=== PATIENT | male | born 1990 | race Caucasian/White ===

== ENCOUNTER 2019-06-17 20:44 | Emergency (ER) | payer SELFPAY ==
[~2019-06-17] VITALS: Ht 167.6 cm; Wt 74.8 kg
--- NOTE | 2019-06-17 21:00 | NUR ---
Patient BIB patient's friend for c/o SI. Patient upon arrival smells of ETOH and admits to drinking a bottle of wine [employer]. Denies SI upon arrival. Placed in room 4B. Provided comfort and safety measures.
[2019-06-17 21:07] LABS: BASOPHILS # (AUTO) 0.1 K/uL (0.0-8.0); BASOPHILS % (AUTO) 0.9 % (0.0-2.0); EOSINOPHILS # (AUTO) 0.2 K/uL (0.0-0.7); HEMATOCRIT 41.9 % (36.7-47.1); HEMOGLOBIN 13.9 g/dL (12.5-16.3); LYMPHOCYTES % (AUTO) 43.9 % (20.5-51.5); MEAN CORPUSCULAR HEMOGLOBIN 30.3 uug (23.8-33.4); MEAN CORPUSCULAR HGB CONC 33 g/dL (32.5-36.3); MEAN CORPUSCULAR VOLUME 91.6 fL (73.0-96.2); MONOCYTES # (AUTO) 0.7 K/uL (2.0-10.0); MONOCYTES % (AUTO) 7.9 % (0.0-11.0); NEUTROPHILS # (AUTO) 4.1 K/uL (1.8-8.9); NEUTROPHILS % (AUTO) 45.3 % (38.5-71.5); PLATELET COUNT (AUTO) 320 K/uL (152-348); RED BLOOD CELL COUNT(AUTO) 4.57 MIL/uL (4.06-5.63); WHITE BLOOD COUNT (AUTO) 9.1 K/uL (3.6-10.2)
[2019-06-17 21:17] LABS: CARBON DIOXIDE 29 mmol/L (21-32); CHLORIDE 106 mmol/L (98-107); CREATININE 1.1 mg/dL (0.6-1.3); GLUCOSE 92 mg/dL (74-106); POTASSIUM 4.2 mmol/L (3.5-5.1); UREA NITROGEN, BLOOD 7 mg/dL (7-18)
[2019-06-17 21:22] LABS: ALANINE AMINOTRANSFERASE 24 U/L (16-63); ALKALINE PHOSPHATASE 51 U/L (50-136); ASPARTATE AMINOTRANSFERASE 17 U/L (15-37); BILIRUBIN,DIRECT 0.2 mg/dL (0.0-0.2); BILIRUBIN,TOTAL 0.5 mg/dL (0.2-1.0); TOTAL PROTEIN, SERUM 7.4 g/dL (6.4-8.2)
[2019-06-17 21:23] LABS: ACETAMINOPHEN < 2.0 ug/mL (10-30)
[2019-06-17 21:26] LABS: ETHANOL 330 MG/DL (0-0)
[2019-06-17 21:36] LABS: *BILIRUBIN,URIN NEGATIVE (NEGATIVE); *BLOOD, URINE NEGATIVE (NEGATIVE); *CLARITY,URINE CLEAR (CLEAR); *COLOR,URINE LIGHT YELLOW (YELLOW); *KETONES,URINE NEGATIVE (NEGATIVE); *UROBILINOGEN,URINE 0.2 E.U./dl (NORMAL); LEUKOCYTE ESTERASE ,URINE NEGATIVE (NEGATIVE); NITRITE, URINE NEGATIVE (NEGATIVE); PH,URINE 5.5 (5.0-8.0); UGLUCOSE NEGATIVE (NEGATIVE)
[2019-06-17 21:45] LABS: *AMPHETAMINE, URINE NEGATIVE (NEGATIVE); *BARBITURATE, URINE NEGATIVE (NEGATIVE); *CANNABINOID, URINE NEGATIVE (NEGATIVE); *COCCAINE, URINE NEGATIVE (NEGATIVE); *OPIATE, URINE NEGATIVE (NEGATIVE); *PHENCYCLIDINE SCREEN,URINE NEGATIVE (NEGATIVE)
--- NOTE | 2019-06-17 23:55 | NUR ---
Patient sleeping with no distress noted.
--- NOTE | 2019-06-18 04:00 | NUR ---
Patient sleeping with no distress noted.
--- NOTE | 2019-06-18 08:02 | NUR ---
Patient is resting on bed watching TV. No distress noted. Will continue to monitor
--- NOTE | 2019-06-18 09:57 | NUR ---
Patient discharged to home in stable conditon. Written and verbal after care instructions given. List of rehab centers & AA meeting information given. Patient instructed not to drive. Patient verbalizes understanding of instructions.
== END 2019-06-18 10:02 | disposition home or self-care (01) ==
LOC: ER 20:46
DX: F32.9 Major depressive disorder, single episode, unspecified (principal); R45.851 Suicidal ideations; F10.129 Alcohol abuse with intoxication, unspecified; Y90.8 Blood alcohol level of 240 mg/100 ml or more
CPT/HCPCS: 36415 ×2; 80048; 80076; 80307; 81001; 85025; 99284; G0480 ×4; G0481; A4663